=== PATIENT | male | born 1955 | race Caucasian/White ===

== ENCOUNTER 2016-08-17 15:40 | Observation (INO) ==
--- NOTE | 2016-08-17 18:29 | Emergency Department Note ---
Disposition Clinical Impression: Chest pain Qualifiers: Chest pain type: other chest pain Qualified Code(s): R07.89 - Other chest pain ; R07.8 - Other chest pain Disposition: Home, Self-Care Condition: Good Referrals: Pascual Dunlap MD [Primary Care Provider] - Forms: ED Satisfaction Letter Chest Pain HPI - General Chief Complaint: ED Chest Pain Stated Complaint: SOB/Dizzy/Cough Time Seen by Provider: 08/17/16 18:26 Source: patient Limitations: no limitations Vital Signs Reviewed: Yes Nursing Notes Reviewed: Yes - History of Present Illness Pt complaint: chest pain Onset (ago): day(s) Duration: intermittent Onset: during rest Pain Location: substernal Severity scale (1-10): 5 Quality: aching, heaviness Pain Radiation: none Improves with: nothing Worsens with: nothing Associated symptoms: Reports: dyspnea Treatments prior to arrival chest pain: none - Related Data Allergies Allergy/AdvReac Type Severity Reaction Status Date / Time Sulfa (Sulfonamide Allergy Hives Verified 08/17/16 16:05 Antibiotics) All systems ED: reviewed and negative except as stated. Constitutional: Denies: fever, chills Gastrointestinal: Denies: abdominal pain, nausea, vomiting Chest Pain PMH - Past Medical History Medical history: Reports: arthritis, asthma, GERD, hyperlipidemia Psychiatric history: Reports: no psych history - Social History Smoking Status: Former smoker Alcohol use: Reports: none Drug use: Reports: none Physical Exam - General Limitations: no limitations General appearance: alert, in no apparent distress - Head Head exam: atraumatic, normocephalic, normal inspection - Eye Eye exam: Present: normal appearance, PERRL, EOMI - Expanded Eye Exam Pupils: Left: reactive - ENT ENT exam: normal exam, normal oropharynx, mucous membranes moist - Expanded ENT Exam External ear exam: Present: normal external inspection Mouth exam: Present: normal external inspection Teeth exam: Present: normal inspection Throat exam: Present: normal inspection - Neck Neck exam: Present: normal inspection, full ROM, trachea midline - Chest Chest inspection: Present: normal inspection, symmetric chest wall rise - Respiratory Respiratory exam: Present: normal lung sounds bilaterally - Cardiovascular Cardiovascular exam: Present: regular rate, normal rhythm, normal heart sounds - Abdominal Exam Abdominal exam: Present: soft, Non-Tender. Absent: tenderness, distention, guarding, rebound, rigidity - Extremities Exam Extremities exam: Present: normal inspection, full ROM. Absent: tenderness, pedal edema - Expanded Upper Extremity Exam Shoulder exam: Present: normal inspection, full ROM Arm exam: Present: normal inspection, full ROM Elbow exam: Present: normal inspection, full ROM Forearm/Wrist exam: Present: normal inspection, full ROM Hand exam: Present: normal inspection, full ROM Vascular exam: Normal: capillary refill, radial pulse - Expanded Lower Extremity Exam Hip/Pelvis exam: Present: normal inspection, full ROM Upper leg exam: Present: normal inspection, full ROM Knee exam: Present: normal inspection, full ROM Lower leg exam: Present: normal inspection, full ROM Ankle exam: Present: normal inspection, full ROM Foot/toe exam: Present: normal inspection, full ROM Neurovascular/Tendon exam: Absent: motor deficit, sensory deficit, tendon deficit - Back Exam Back exam: Present: normal inspection, full ROM. Absent: tenderness - Neurological Exam Neurological exam: Present: alert, oriented X3 - Expanded Neurological Exam Patient oriented to: Present: person, place, time Coma Scale Eye Opening: Spontaneous Coma Scale Motor Response: Obeys Commands Coma Scale Verbal Response: Oriented Coma Scale Total: 15 - Psychiatric Psychiatric exam: Present: normal affect, normal mood - Skin Skin exam: Present: warm, dry, intact, normal color Course Vital Signs Temperature 98.2 F 08/17/16 16:00 Pulse Rate 69 08/17/16 16:00 Respiratory Rate 16 08/17/16 16:00 Blood Pressure 141/88 08/17/16 16:00 O2 Sat by Pulse Oximetry 97 08/17/16 16:00 Temperature 98.2 F 08/17/16 16:00 Pulse Rate 69 08/17/16 16:00 Respiratory Rate 16 08/17/16 16:00 Blood Pressure 141/88 08/17/16 16:00 O2 Sat by Pulse Oximetry 97 08/17/16 16:00 Oxygen Delivery Oxygen Delivery Room Air Chest Pain - Differential Diagnosis Likely: fracture of rib, unstable angina pectoris, atypical chest pain, st elevation myocardial infraction, chest pain - Medical Records Medical records reviewed: Yes I reviewed the patient's medical records. - Lab Data Lab results reviewed: Yes I reviewed the patient's lab results. Result diagrams: 08/17/16 18:27 Lab Results 08/17/16 08/17/16 Range/Units 18:27 18:27 WBC 6.5 (4.3-11.1) K/mcL RBC 4.76 (4.19-5.50) M/mcL Hgb 14.9 (12.9-16.9) g/dL Hct 44.5 (37.5-50.1) % MCV 93.5 (83.0-100.0) fL MCH 31.3 (28.0-33.3) pg MCHC 33.5 (31.6-35.5) g/dL RDW 12.3 (11.5-14.5) % Plt Count 201 (140-400) K/mcL MPV 10.4 (9.4-12.4) fL Immature Gran % 0.3 (0-4) % Seg Neutrophils % 66.6 % Lymphocytes % 19.5 % Monocytes % 8.8 % Eosinophils % 3.6 % Basophils % 1.2 % Neutrophils # 4.3 (1.6-8.9) K/mcL Lymphocytes # 1.3 (0.6-4.6) K/mcL Monocytes # 0.6 (0.0-1.3) K/mcL Eosinophils # 0.2 (0.0-0.6) K/mcL Basophils # 0.1 (0.0-0.2) K/mcL Immature Plt Fraction 7.7 H (1.1-6.1) % PT 10.9 (9.4-12.1) Seconds INR 1.0 APTT 35.3 (26.0-36.0) Seconds D-Dimer < 215 (0-500) ng/mLFEU - Radiology Data Radiology results reviewed: Yes I reviewed the patient's radiology results. - EKG Data EKG attestation: Yes I reviewed and interpreted this EKG. EKG shows normal: sinus rhythm Rate: normal Rhythm: NSR (69) Interpretation: no acute changes
[2016-08-17 18:36] LABS: Basophils # 0.1 K/mcL (0.0-0.2); Basophils % 1.2 %; Eosinophils # 0.2 K/mcL (0.0-0.6); Eosinophils % 3.6 %; Hematocrit 44.5 % (37.5-50.1); Hemoglobin 14.9 g/dL (12.9-16.9); Immature Granulocytes % 0.3 % (0-4); Immature Platelets 7.7 % (1.1-6.1); Lymphocytes # 1.3 K/mcL (0.6-4.6); Lymphocytes % 19.5 %; Mean Corpuscular HGB Conc 33.5 g/dL (31.6-35.5); Mean Corpuscular Hemoglobin 31.3 pg (28.0-33.3); Mean Corpuscular Volume 93.5 fL (83.0-100.0); Mean Platelet Volume 10.4 fL (9.4-12.4); Monocytes # 0.6 K/mcL (0.0-1.3); Monocytes % 8.8 %; Neutrophils # 4.3 K/mcL (1.6-8.9); Platelet Count 201 K/mcL (140-400); Red Blood Count 4.76 M/mcL (4.19-5.50); Red Cell Distribution Width 12.3 % (11.5-14.5); Segmented Neutrophils % 66.6 %
[2016-08-17] MEDS ORDERED: Aspirin 81 MG TAB.CHEW PO STA (18:36)
[2016-08-17 18:53] LABS: Prothrombin Time 10.9 Seconds (9.4-12.1)
[2016-08-17 18:55] LABS: Activated Partial Thrombo Time 35.3 Seconds (26.0-36.0)
[2016-08-17 19:12] LABS: D-Dimer < 215 ng/mLFEU (0-500)
[2016-08-17 20:01] LABS: BUN/Creatinine Ratio 14 (6-26); Blood Urea Nitrogen 14 mg/dL (8-26); Calcium 9.4 mg/dL (8.6-10.8); Carbon Dioxide 23 mEq/L (19-29); Chloride 107 mEq/L (98-109); Glucose 89 mg/dL (70-99); Osmolality,Calculated 290 (280-300); Potassium 3.8 mEq/L (3.5-4.5); Sodium 140 mEq/L (136-145); eGFR For African Americans > 60 (> 60); eGFR For Non-African Americans > 60 (> 60)
[2016-08-17] MEDS ORDERED: Loratadine 10 MG TABLET PO PRN (21:45)
[2016-08-17] MEDS ORDERED: Fluticasone Propionate Nasal 50 MCG/SPRAY BOTTLE NS PRN (21:45)
--- NOTE | 2016-08-17 23:54 | Internal Med History&Physical ---
Date of Encounter: 08/18/16 Time of Encounter: 23:51 Assessment and Plan (1) Chest pain Current visit: Yes Status: Acute Could be a sign of unstable angina. He has a high risk for coronary artery disease due to very significant family history. Will monitor the patient on telemetry, trend troponins and obtain echocardiogram and stress test in the morning. Qualifiers: Chest pain type: precordial pain Qualified Code(s): R07.2 - Precordial pain (2) Bronchial asthma Current visit: Yes Status: Acute Inhaled albuterol as needed. Qualifiers: Asthma severity: mild intermittent Asthma complication type: uncomplicated Qualified Code(s): J45.20 - Mild intermittent asthma, uncomplicated (3) BPH (benign prostatic hyperplasia) Current visit: Yes Status: Acute Continue with Flomax. Qualifiers: Prostatic enlargement morphology: unspecified morphology Lower urinary tract symptom presence: presence of symptoms unspecified Qualified Code(s): N40.0 - Benign prostatic hyperplasia without lower urinary tract symptoms (4) DVT prophylaxis Current visit: Yes Status: Acute Will encourage ambulation. Pharmacological prophylaxis is not required due to ambulatory status. (5) Lower extremity edema Current visit: Yes Status: Acute Given the history of venous thrombosis of the leg and asymmetric lower extremity edema as well as chest pain and shortness of breath we will obtain lower extremity Dopplers to rule out DVT. Qualifiers: Laterality: right Qualified Code(s): R60.0 - Localized edema Internal Medicine - H&P: HPI Chief complaint: Chest pain Admitted From: Emergency Dept Plans for Post Hospital Care: Home History of present illness: Mr. Priest is a 60 year old male with past medical history significant for asthma who presented to the hospital for evaluation of chest pain and shortness of breath. He reports 8/10 aching midsternal chest pain associated with shortness of breath which she perceived as an asthma attack but was not relieved with albuterol, currently the pain is 4/10. He denies any aggravating or alleviating factors. He was sent by the PCP in the office and referred to the emergency department for further evaluation. A 10 point review of systems was performed. Positives per history of present illness and additionally positive for reported blood clot in the right lower extremity unclear if superficial versus deep venous thrombosis. Otherwise negative. Family history pertinent for patient's mother suffered with CAD in her 50s and patient had 2 brothers of premature coronary artery disease. Past Med Surg Social Fam HX - Past Medical History Medical history: arthritis, asthma, GERD, hyperlipidemia Psychiatric history: no psych history - Past Surgical History Surgical History: cholecystectomy, herniorrhaphy, knee replacement - Social History Smoking Status: Former smoker Smokeless Tobacco Status: No Alcohol use: none Drug use: none - Family History Mother Living Status: Hx Family Cardiac Disorders: Yes (quad bypass) Brother Hx Family Cardiac Disorders: Yes (bypass.) Internal Medicine - H&P: Meds Albuterol Sulfate [Albuterol Inhaler] 2 puff IH Q4H PRN 08/17/16 [History] Ascorbate Calcium [Vitamin C] 500 mg PO DAILY 08/17/16 [History] Aspirin Enteric Coated [Aspirin EC] 81 mg PO DAILY 08/17/16 [History] Cetirizine HCl [Zyrtec] 10 mg PO DAILY PRN 08/17/16 [History] Dicyclomine [Bentyl] 20 mg PO BID PRN 08/17/16 [History] Fluticasone Propionate Nasal [Flonase] 50 mcg NS DAILY PRN 08/17/16 [History] Melatonin 3 mg PO HS PRN 08/17/16 [History] Tamsulosin [Flomax] 0.4 mg PO DAILY 08/17/16 [History] Allergies Sulfa (Sulfonamide Antibiotics) Allergy (Verified 08/17/16 16:05) Hives All Systems PM: A 10-system review of systems was performed and is negative for pertinent findings except as documented above in the HPI. - Constitutional Vitals: Temp Pulse Resp BP Pulse Ox 98.2 F 55 14 154/89 98 08/17/16 20:52 08/17/16 20:52 08/17/16 20:52 08/17/16 20:52 08/17/16 20:52 - Eye Eye exam: Present: PERRL, conjuntiva pink, sclera anicteric Pupils: Present: PERRL - Respiratory Respiratory exam: Present: CTAB. Absent: accessory muscle use, rales, rhonchi, wheezes - Cardiovascular Cardiovascular exam: Present: RRR, +S1, +S2. Absent: diastolic murmur, gallop, rubs, systolic murmur - GI/Abdominal GI/Abdominal exam: Present: normal bowel sounds, soft, no peritoneal signs. Absent: distended, tenderness - Extremities Exam Extremities exam: Present: pedal edema (non-pitting edema LE, R>L), warm, radial pulses palpable and symetrical. Absent: calf tenderness, cyanotic - Skin Skin exam: Present: dry, intact Internal Med - H&P Results - Labs CBC & Chem 7: 08/18/16 01:10 08/18/16 01:10
[2016-08-18 01:44] LABS: Basophils # 0.1 K/mcL (0.0-0.2); Basophils % 1.6 %; Eosinophils # 0.2 K/mcL (0.0-0.6); Eosinophils % 4.4 %; Hematocrit 39.6 % (37.5-50.1); Hemoglobin 13.6 g/dL (12.9-16.9); Immature Granulocytes % 0.2 % (0-4); Lymphocytes # 1.5 K/mcL (0.6-4.6); Lymphocytes % 27.5 %; Mean Corpuscular HGB Conc 34.3 g/dL (31.6-35.5); Mean Corpuscular Hemoglobin 32.2 pg (28.0-33.3); Mean Corpuscular Volume 93.8 fL (83.0-100.0); Mean Platelet Volume 11.2 fL (9.4-12.4); Monocytes # 0.6 K/mcL (0.0-1.3); Monocytes % 11.1 %; Platelet Count 173 K/mcL (140-400); Red Blood Count 4.22 M/mcL (4.19-5.50); Red Cell Distribution Width 12.2 % (11.5-14.5); Segmented Neutrophils % 55.2 %
[2016-08-18 02:04] LABS: BUN/Creatinine Ratio 15 (6-26); Blood Urea Nitrogen 13 mg/dL (8-26); Calcium 8.9 mg/dL (8.6-10.8); Carbon Dioxide 21 mEq/L (19-29); Chloride 110 mEq/L (98-109); Cholesterol 164 mg/dL (< 200); Glucose 93 mg/dL (70-99); HDL Cholesterol 33 mg/dL (40-59); LDL Cholesterol,Calculated 95 mg/dL (0-99); Magnesium 1.9 mg/dL (1.6-2.6); Osmolality,Calculated 288 (280-300); Potassium 3.6 mEq/L (3.5-4.5); Sodium 139 mEq/L (136-145); Triglycerides 180 mg/dL (< 150); eGFR For African Americans > 60 (> 60); eGFR For Non-African Americans > 60 (> 60)
[2016-08-18] MEDS ORDERED: Aspirin Enteric Coated 81 MG Tablet PO SCH (09:00)
--- NOTE | 2016-08-18 10:17 | Nuclear Medicine Stress Report ---
Exercise Nuclear Stress Name: Jose Martin Priest Date of Study: 08/18/2016 Date: 1955 Ht: 72.0 in Medical Record#: [id number] Age: 60 Wt: 220.0 lb Gender: Male Order #: [id number] Location: [facility] IP Room: [facility] Supervising Provider: Sulaiman Guy CNP Reading Physician: Lionel Ruiz MD, [facility] Ordering Physician: Liz Tejeda CNP Primary Care Physician: Pascual Dunlap MD Stress Technologist: James Joseph RRT, [facility] Nsh Teacher: Leander Vogel Indications: Chest Pain, Shortness of breath Impression: Patient reported moderate chest pain prior to the test. Chest pain did not change with exercise. The exercise capacity was average. Exercise ECG is negative for ischemia. Gated LVEF > 70%. Perfusion imaging was negative for ischemia or infarct. History: Hypercholesteremia Stress Test Summary: Stress Test Type: Treadmill Protocol: [place] Baseline Information: Initial Heart Rate: 67 Blood Pressure: 130/88 Stress Information: Stress Time: 7 min 01 sec Test Terminated Due to (primary): Dyspnea Maximum Blood Pressure: 164/84 Maximum Heart Rate: 149 Percent Maximum Heart Rate Achieved: 92 Double Product: 71931 METS Reached: 10.1 Symptoms: Shortness of breath, Chest pain Nuclear Summary: SPECT myocardial perfusion imaging using Tc99m Sestamibi given intravenously was performed at rest and following cardiac stress testing. The resting images were obtained following initial dose of 11.1 mCi. Following stress an additional dose of 30.3 mCi was given at peak exercise or 30 seconds post regadenoson infusion. Findings: Stress Note * Resting ECG demonstrated normal sinus rhythm. * No baseline arrhythmias were noted. * The exercise capacity was average. * Patient reported moderate chest pain prior to the test. Chest pain did not change with exercise. * No arrhythmias were noted during stress. * Exercise ECG is negative for ischemia. Hemodynamic responses * Normal hemodynamic responses to exercise. Study Quality * Study quality is good. Gated EF > 70% * Gated LVEF > 70%. Left Ventricle * The left ventricle is not dilated. * Normal Segmental Perfusion in rest. * Normal segmental perfusion in stress. TID * No evidence of transient ischemic dilatation. Updated by Lionel Ruiz MD, [facility] on 08/18/2016 10:10:24 AM electronically signed on 08/18/2016 10:10:52 AM with status of Final
--- NOTE | 2016-08-18 10:42 | Electrocardiograph Report ---
[address] [address] Test Date: 2016-08-17 Pat Name: Jose Martin Priest Department: 102 Room: 3B39 Gender: M Greenskeeper: : 1955 Requested By: Sheridan See Order Number: [id number] Reading MD: Lionel Ruiz MD Measurements Intervals [place] Rate: 69 P: 28 MI: 141 QRS: 2 QRSD: 92 T: 3 QT: 352 QTc: 371 Interpretive Statements SINUS RHYTHM Electronically Signed On 08-18-2016 10:40:46 EDT by Lionel Ruiz MD
--- NOTE | 2016-08-18 11:04 | ECHO - Doppler Report ---
Echocardiogram Name: Jose Martin Priest Date of Study: 08/18/2016 Date: 1955 Ht: 72.0 in Medical Record#: [id number] Age: 60 Wt: 220.0 lb Gender: Male BSA: 2.22 Order #: [id number] Location: [facility] Room #: 3B39 Reading Physician: Lionel Ruiz MD, [facility] Logistic Specialist: Leonardo Brooks Ordering Physician: Troy Dudley MD Primary Physician: Pascual Dunlap MD Indications: Chest pain Impressions: Normal LV systolic function, LVEF 60-65%. Normal right ventricular size and function. No significant valvular dysfunction. No evidence of pulmonary hypertension. Left Ventricular Wall Motion: Rest Echo Findings All wall segments showed normal motion. Findings: Study Quality * Technically adequate exam. ECG Findings * Normal sinus rhythm. Left Ventricle * Normal LV systolic function, LVEF 60-65%. * Normal LV chamber size and wall thickness. * Indeterminate diastolic function. Right Ventricle * Normal right ventricular size and function. Left Atrium * Normal left atrial size. Right Atrium * Normal right atrial size. Aorta * Normally sized aortic root. Pericardium * There is no pericardial effusion present. IVC * The IVC is not dilated. Aortic Valve * Trileaflet aortic valve. * Mildly sclerotic aortic valve leaflets. * No aortic stenosis. * No aortic regurgitation. Mitral Valve * Normal mitral valve structure. * No mitral stenosis. * Trace mitral regurgitation. Tricuspid Valve * Normal tricuspid valve structure. * No tricuspid stenosis. * Trace tricuspid regurgitation. * No evidence of pulmonary hypertension. Pulmonic Valve * Pulmonic valve not well visualized. * No pulmonic stenosis. * Trace pulmonic regurgitation. History Hypercholesteremia Measurements: BP: 121/ 82 2D Normal Values RVIDd: 3.50 cm IVSd: 1.00 cm 0.6 - 1.0 cm LVIDd: 4.40 cm 3.7 - 5.6 cm LVPWd: 1.00 cm 0.6 - 1.1 cm LVIDs: 2.90 cm 1.5 - 3.6 cm AO: 3.10 cm < 4.0 cm %FS: 34.10 cm >25 % LA volume: 68 Mitral Valve Peak E:.80 m/sec Peak A:.56 m/sec E/A Ratio:1.4 Tricuspid Valve TV Regurg Peak Grad: 21.00mmHg TV Regurg Peak Herrera: 2.31m/sec Updated by Lionel Ruiz MD, [facility] on 08/18/2016 10:57:10 AM electronically signed on 08/18/2016 10:57:40 AM with status of Final Wall Motion Pollock: 1=Normal, 2=Hypokinesis, 3=Akinesis, 4=Dyskinesis, 5=Aneurysmal, 6=Hyperkinetic, X=Not Visualized (Blank)=Missing
[2016-08-18 15:30] VITALS: BP 127/83
[2016-08-18] MEDS ORDERED: Ipratropium/Albuterol Neb 3 ML IH SCH (16:00)
--- NOTE | 2016-08-18 17:21 | Discharge Summary ---
Date of Encounter: 08/18/16 Time of Encounter: 17:17 - Discharge Diagnosis (1) Chest pain Priority: Primary Status: Acute Qualifiers: Chest pain type: precordial pain Qualified Code(s): R07.2 - Precordial pain (2) Bronchial asthma Priority: Secondary Status: Acute Qualifiers: Asthma severity: mild intermittent Asthma complication type: uncomplicated Qualified Code(s): J45.20 - Mild intermittent asthma, uncomplicated (3) BPH (benign prostatic hyperplasia) Priority: Secondary Status: Acute Qualifiers: Prostatic enlargement morphology: unspecified morphology Lower urinary tract symptom presence: presence of symptoms unspecified Qualified Code(s): N40.0 - Benign prostatic hyperplasia without lower urinary tract symptoms (4) DVT prophylaxis Priority: Secondary Status: Acute (5) Lower extremity edema Priority: Secondary Status: Acute Qualifiers: Laterality: right Qualified Code(s): R60.0 - Localized edema - Discharge Medications Prescriptions: Albuterol Sulfate [Albuterol Inhaler] 2 puff IH Q4H PRN #1 inhaler PRN Reason: Shortness Of Breath Budesonide/Formoterol 160/4.5 [Symbicort 160/4.5] 1 puff IH BIDR #1 inhaler Pantoprazole Sodium [Protonix] 40 mg PO DAILY #30 tablet.dr Home Medications: Ascorbate Calcium [Vitamin C] 500 mg PO DAILY 08/17/16 [History] Aspirin Enteric Coated [Aspirin EC] 81 mg PO DAILY 08/17/16 [History] Cetirizine HCl [Zyrtec] 10 mg PO DAILY PRN 08/17/16 [History] Dicyclomine [Bentyl] 20 mg PO BID PRN 08/17/16 [History] Fluticasone Propionate Nasal [Flonase] 50 mcg NS DAILY PRN 08/17/16 [History] Melatonin 3 mg PO HS PRN 08/17/16 [History] Tamsulosin [Flomax] 0.4 mg PO DAILY 08/17/16 [History] Albuterol Sulfate [Albuterol Inhaler] 2 puff IH Q4H PRN #1 inhaler 08/18/16 [Rx] Budesonide/Formoterol 160/4.5 [Symbicort 160/4.5] 1 puff IH BIDR #1 inhaler 08/31 [Rx] Pantoprazole Sodium [Protonix] 40 mg PO DAILY #30 tablet. 08/18/16 [Rx] Allergies/Adverse Reactions: Allergies Sulfa (Sulfonamide Antibiotics) Allergy (Verified 08/17/16 16:05) Hives Procedures/tests Complete & Pending: Procedures Performed prior 72 hours Category Date Time Status NM shimon perf SPECT multi [NM] Routine Exams 08/17/16 21:49 Taken EV echocardiogram Routine Y 08/18/16 21:49 Completed EV venous imaging LE BI Routine Y 08/18/16 07:30 Completed SP exercise nuclear stress Stat Y 08/17/16 21:49 Completed Date of admission: 08/17/16 19:43 Primary care physician: Pascual Dunlap MD - Patient Status Disposition: Home, Self-Care Condition: Good Functional capacity at discharge: independent ambulation Overall status at discharge: patient is progressing back to baseline - Discharge Instructions Follow Up With: Pascual Dunlap MD [Primary Care Provider] - 08/26/16 1:00 pm Sam Redd MD [Partnered Physician] - - Diet and Activity Activity: increase activity as tolerated (Return to work on 06/26/2016, no restrictions.) Diet: low salt diet Hospital course: Mr. Priest is a 60 year old male with past medical history significant for asthma who presented to the hospital for evaluation of chest pain and shortness of breath. He reports 8/10 aching midsternal chest pain associated with shortness of breath which he perceived as an asthma attack but was not relieved with albuterol, currently the pain is 4/10. He denies any aggravating or alleviating factors. He was sent by the PCP in the office and referred to the emergency department for further evaluation. The patient was placed in observation. Telemetry showed no arrhythmia. Troponin was obtained every 6 hours and remained within normal limits. She had a stress test which was negative for ischemia and an echocardiogram which showed normal ejection fraction and no valvular disease. He reports mild chest discomfort which started after a recent episode of bronchitis and is worse with coughing. He denies any associated sputum. He reports some wheezing and continued shortness of breath. For asthma control advise patient to use his albuterol inhaler and I will prescribed Symbicort. He and his also reports that the patient has episodes of nocturnal asthma attacks that wake him up from sleep. I suspect possible GERD triggering asthma attacks at night and therefore I will start treatment with Protonix. The patient is currently medically stable for discharge home he was instructed to follow-up with his primary care physician and will be referred to outpatient pulmonology for PFTs. - Time Spent with Patient Total time spent providing and/or coordinating discharge services: - Constitutional Vitals: Temp Pulse Resp BP Pulse Ox 98.0 F 71 14 127/83 97 08/18/16 15:27 08/18/16 15:27 08/18/16 15:27 08/18/16 15:27 08/18/16 16:26 - Respiratory Respiratory exam: Present: CTAB. Absent: accessory muscle use, rales, rhonchi, wheezes - Cardiovascular Cardiovascular exam: Present: RRR, +S1, +S2. Absent: diastolic murmur, gallop, rubs, systolic murmur - GI/Abdominal GI/Abdominal exam: Present: normal bowel sounds, soft, no peritoneal signs. Absent: distended, tenderness - Extremities Exam Extremities exam: Present: warm, radial pulses palpable and symetrical. Absent : calf tenderness, cyanotic, pedal edema
--- NOTE | 2016-08-18 21:43 | Venous Imaging Report ---
LE Venous Duplex Patient Name:Jose Martin Priest Order Number:[id number] Procedure Date:08/18/2016 Date:8Age:60 yrs Gender:Male Location:[facility] Room #: 3B39 Transmission Mechanic:Liz Jenkins RDCS, RVT Referring MD:Troy Dudley MD upper caser:Pascual Dunlap MD Reading MD:Feroz Alvarez MD , FACS Primary Indications:Shortness of Breath, Swelling Secondary Indications: Risk Factors Yes/No Hx of DVT Yes Anticoagulants ASA Hx of Chemotherapy No Trauma to Veins No Recent Surgery No Impressions: Bilateral lower extremity: normal superficial and deep exam. Recommendations: After imaging the patient returned to their room. Lower Extremity Venous Duplex Side Vein Compress Spontaneous Flow Augment Diameter (cm) Depth (cm) Right Distal Iliac Normal Yes Phasic Yes Right Common Femoral Normal Yes Phasic Yes Right Superficial Femoral Normal Yes Phasic Yes Right Popliteal Normal Yes Phasic Yes Right Posterior Tibial Normal Yes Phasic Yes Right Peroneal Normal Yes Phasic Yes Right Great Saphenous Normal Yes Phasic Yes Right Lesser Saphenous Normal Yes Phasic Yes Left Distal Iliac Normal Yes Phasic Yes Left Common Femoral Normal Yes Phasic Yes Left Superficial Femoral Normal Yes Phasic Yes Left Popliteal Normal Yes Phasic Yes Left Posterior Tibial Normal Yes Phasic Yes Left Peroneal Normal Yes Phasic Yes Left Great Saphenous Normal Yes Phasic Yes Left Lesser Saphenous Normal Yes Phasic Yes Updated by Feroz Alvarez MD, FACS on 08/18/2016 9:38:31 PM Feroz Alvarez MD electronically signed on 08/18/2016 9:39:09 PM with status of Final
[2016-08-18] MEDS ORDERED: Budesonide/Formoterol 160/4.5 MDI IH SCH (22:00)
== END 2016-08-18 18:15 | disposition home or self-care (01) ==
LOC: 3BNU 15:40 → EMEROO 15:40 → SUATTDRO 19:43 → 3BNU 20:19
PROVIDERS: ADMIT Internal Medicine; ATTEND Internal Medicine